=== PATIENT | male | born 1970 | race African-American/Black ===

== ENCOUNTER 2016-09-22 04:47 | Emergency (ER) | payer BC ==
--- NOTE | ~2016-09-22 | CT4 ---
[facility] A Service of [facility] RADIOLOGY TEXT RESULTS PATIENT: BRADFORD BARTON LOCATION: SED : 70 UNIT #: [id number] AGE: [address]: Nakul Velasquez MD SEX: M ORDER DR: [id number] [place] [id number] E MR#: [id number] Acc #: [id number] NAME: BRADFORD BARTON : 1970 SEX: M STUDY DATE/TIME: 09/22/2016 5:51 UNIT: SED ROOM: STUDY DESCRIPTION: CT Abd and Pelv Wo Cont Attending Physician: Nakul Velasquez M.D. Ordering Physician: Nakul Velasquez M.D. Primary Care Physician: Mirian Barone M.D. MEDICAL IMAGING REPORT This report is preliminary unless electronic signature is present. EXAM CT abdomen and pelvis without contrast 09/22/[address] abdomen and pelvis without contrast with multiplanar reformats. This CT examination was performed with one or more of the following radiation dose reduction techniques: automatic exposure control, adjustment of mA and/or kV according to patient size, and iterative reconstruction. COMPARISON 12/12/2015. HISTORY Left flank pain and nausea, history of kidney stones. FINDINGS The lung bases are unremarkable. ABDOMEN: The liver, gallbladder, spleen, pancreas and adrenal glands are normal. There are nonobstructing bilateral renal stones, 1 at the right renal lower pole at least 10 mm in size. However, there is slight left perinephric stranding, and the left ureter particularly distally is mildly dilated. There is an approximately 8 mm stone within the left ureter in the pelvis, though a similar stone was seen on the prior study as well. PELVIS: There is no hernia or bowel obstruction. The appendix is normal. There is some spinal degenerative change but no acute bony abnormality. IMPRESSION Mild left perinephric stranding and a left pelvic distal ureteral approximately 8 mm stone perhaps 3 cm above the ureterovesical orifice. A [facility] A Service of [facility] RADIOLOGY TEXT RESULTS PATIENT: BRADFORD BARTON LOCATION: SED : 70 UNIT #: [id number] AGE: [address]: Nakul Velasquez MD SEX: M ORDER DR: very similar stone was seen in the same position on the prior exam though whether this is simply a new stone or a chronic ureteral stone is unclear. There are no right ureteral stones and there is no bowel obstruction. The appendix is normal. There is mild diverticulosis without diverticulitis. Dictated by... Lopez Kauffman M.D. THIS IS AN ELECTRONICALLY VERIFIED REPORT Lopez Kauffman M.D. at 09/22/2016 3:57 PM RAFY/emerson TD: 09/22/2016 07:01 JOB #: [id number] MEDICAL IMAGING REPORT Page 1 of 1
[~2016-09-22 04:47] MED LIST: BACTRIM DS TABL1 TA1 PO; BENZONATATE PO; COLACE; FLOMAX0.4 M1 PO; FLOMAX0.4 MG PO; HYDROCODONE PO; IBUPROFEN800 MG PO; LORTAB 5/500 TA1 TA1 PO; MIRALAX17 GM PO; NAPROXEN; OMEPRAZOLE20 M2 PO; PERCOCET 10/3251 TAB PO; PHENERGAN25 M1 PO; ROXICODONE5 MG PO; TYLENOL325 M1 PO; VICODIN PO; ZITHROMAX; ZOFRAN; ZOFRAN ODT4 MG PO; ZYVOX PO
[2016-09-22] MEDS ORDERED: BP MED (04:57)
[2016-09-22 05:39] LABS: URINE SOURCE CLEAN CATCH
[2016-09-22 05:41] LABS: URINE APPEARANCE CLEAR; URINE BILIRUBIN NEG (NEG); URINE BLOOD TRACE-INTACT (NEG); URINE COLOR YELLOW; URINE GLUCOSE NEG (NORM); URINE KETONE NEG (NEG); URINE LEUKOCYTE ESTERASE NEG (NEG); URINE NITRATE NEG (NEG); URINE PROTEIN NEG (NEG); URINE SPECIFIC GRAVITY 1.015 (1.003-1.035); URINE UROBILINOGEN 0.2 MG/DL (NORM)
[2016-09-22 05:42] LABS: MICRO INDICATED? YES
[2016-09-22 05:44] LABS: CULTURE INDICATED? NO; URINE BACTERIA NEG (NEG); URINE GRANULAR CAST 0-2 /[HPF]; URINE HYALINE CAST 0-2 /[HPF]; URINE RBC 0-2 /[HPF] (0-2); URINE SQUAMOUS EPITHELIAL CELL FEW /[HPF]
[2016-09-22 05:45] LABS: URINE MUCUS PRESENT
== END 2016-09-22 06:32 | disposition home or self-care (01) ==
LOC: SED 04:47
PROVIDERS: Emergency Medicine
DX: N13.2 Hydronephrosis with renal and ureteral calculous obstruction (principal)
CPT/HCPCS: 74176; 81003; 99284

== ENCOUNTER 2016-11-09 21:58 | Emergency (ER) | payer BC ==
--- NOTE | ~2016-11-09 | CT4 ---
[facility] A Service of [facility] RADIOLOGY TEXT RESULTS PATIENT: BRADFORD BARTON LOCATION: SED : 70 UNIT #: [id number] AGE: [address]: Buzz Cooley MD SEX: M ORDER DR: [id number] [place] [id number] E MR#: [id number] Acc #: [id number] NAME: BRADFORD BARTON : 1970 SEX: M STUDY DATE/TIME: 11/09/2016 23:10 UNIT: SED ROOM: STUDY DESCRIPTION: CT Abd and Pelv Wo Cont Attending Physician: Buzz Cooley M.D. Ordering Physician: Buzz Cooley M.D. Primary Care Physician: Mirian Barone M.D. MEDICAL IMAGING REPORT This report is preliminary unless electronic signature is present. EXAM CT abdomen and pelvis without contrast INDICATION Right flank pain today with hematuria. PROCEDURE Unenhanced CT abdomen and pelvis. This CT exam was performed with one or more of the following radiation dose reduction techniques: automatic exposure control, adjustment of mA and/or kV according to patient size, and iterative reconstruction. COMPARISON 09/22/2016 FINDINGS ABDOMEN WITHOUT CONTRAST: Included lung bases clear. Liver, spleen, adrenal glands, pancreas, gallbladder unremarkable unenhanced appearance. Bowel loops are nondilated. Normal appendix. There is a 5 mm calculus in the right mid ureter with mild right hydronephrosis. Nonobstructing calculi lower pole right kidney measuring up to 6 mm. Small nonobstructing calculus lower pole of the left kidney. There is a stone in the very distal left ureter above the UVJ. It measures approximately 7 mm and was present on the previous study. There is no left-sided hydronephrosis. PELVIS WITHOUT CONTRAST: No radiodense bladder calculus. Small left sided bladder diverticulum. No aggressive appearing bone lesion. [facility] A Service of [facility] RADIOLOGY TEXT RESULTS PATIENT: BRADFORD BARTON LOCATION: SED : 70 UNIT #: [id number] AGE: [address]: Buzz Cooley MD SEX: M ORDER DR: IMPRESSION 1. A 5 mm stone in the right mid ureter with mild hydronephrosis. 2. Nonobstructing calculi in both kidneys. 3. A 7 mm stone in the distal left ureter is stable compared with 09/22/2016 and results in no hydronephrosis. Dictated by... Ra Culver M.D. THIS IS AN ELECTRONICALLY VERIFIED REPORT Ra Culver M.D. at 11/10/2016 10:26 PM GAMA/marsha TD: 11/10/2016 01:18 JOB #: [id number] MEDICAL IMAGING REPORT Page 1 of 1
[~2016-11-09 21:58] MED LIST changes: +BP MED
[2016-11-09 22:30] LABS: URINE SOURCE CLEAN CATCH
[2016-11-09 22:33] LABS: URINE APPEARANCE CLEAR; URINE BILIRUBIN NEG (NEG); URINE BLOOD 3+ (NEG); URINE COLOR YELLOW; URINE GLUCOSE NEG (NORM); URINE KETONE 1+ (NEG); URINE LEUKOCYTE ESTERASE NEG (NEG); URINE NITRATE NEG (NEG); URINE PH 7.5 (5-8); URINE PROTEIN TRACE (NEG); URINE SPECIFIC GRAVITY 1.015 (1.003-1.035)
[2016-11-09 22:39] LABS: MICRO INDICATED? YES; URINE RBC 200-300 /[HPF] (0-2)
[2016-11-09 22:40] LABS: CULTURE INDICATED? NO; URINE BACTERIA NEG (NEG); URINE SQUAMOUS EPITHELIAL CELL OCCAS /[HPF]; URINE TRANSITIONAL EPI CELLS FEW /[HPF]
[2016-11-09 23:33] LABS: HEMATOCRIT 48.5 % (38.0-50.0); HEMOGLOBIN 16.3 gm/dL (13.0-16.0); MEAN CELL VOLUME 89.6 FL (83-96); MEAN CORPUSCULAR HEMOGLOBIN 30.2 PG (28-34); MEAN CORPUSCULAR HGB CONC 33.7 g/dL (30-36); RED BLOOD COUNT 5.41 X10e (3.90-5.60); WHITE BLOOD COUNT 7.8 X10e3 (4.0-10.5)
[2016-11-09 23:49] LABS: BUN/CREATININE RATIO 14.16; CALCIUM SERUM 9.1 mg/dL (8.4-10.2); CREATININE SERUM 1.2 mg/dL (0.6-1.4); GLOM FILT RATE Estimated 83.6 mL/min (>60); POTASSIUM 3.8 mmol/L (3.5-5.1)
== END 2016-11-10 00:41 | disposition home or self-care (01) ==
LOC: SED 21:58
PROVIDERS: Emergency Medicine
DX: N13.2 Hydronephrosis with renal and ureteral calculous obstruction (principal); I10 Essential (primary) hypertension
CPT/HCPCS: 36415; 74176; 80048; 81003; 85027; 96374; 96375; 99284; J1885; J2405